=== PATIENT | female | born 1975 | race Asian ===

== ENCOUNTER 2023-12-18 20:54 | Emergency (ER) | payer OTHER ==
[~2023-12-18] VITALS: Ht 162.6 cm; Wt 63.6 kg
[2023-12-18 20:58] VITALS: TEMP 98.1
[2023-12-18 21:30] VITALS: BP 161/110; PULSE 91; RESP 16
[2023-12-18] MEDS: ACETAMINOPHEN 500 MG TABLET PO ONE (22:56)
[2023-12-19] MEDS ORDERED: CYCL-448 PO (02:12)
== END 2023-12-19 02:18 | disposition home or self-care (01) ==
LOC: EMS 20:54
DX: S13.4XXA Sprain of ligaments of cervical spine, initial encounter (principal); I10 Essential (primary) hypertension; Z72.89 Other problems related to lifestyle; V49.20XA Unspecified car occupant injured in collision with unspecified motor vehicles in nontraffic accident, initial encounter; Y93.89 Activity, other specified; Y92.481 Parking lot as the place of occurrence of the external cause; Y99.8 Other external cause status
CPT/HCPCS: 72040; 99283